=== PATIENT | male | born 1955 | race Caucasian/White ===

== ENCOUNTER → 2021-02-17 09:40 | Outpatient (CLI) | payer MEDICAID, SELFPAY ==
--- NOTE | 2021-02-17 | ASPOS_PTH ---
PATIENT: MANDEEP GRAY LOC: [facility] U#:[id number] AGE/SX: 69/M ROOM: RE02/17/[address]: Dr. Gal Rees MD : 1955 BED: DIS: SPEC #: [id number] RECD: 02/17/21 12:39 STATUS: LUIS A REValentine #: [id number] BIJAN: 02/17/21 00:[address]: Gal Rees DEPT: CYTOLOGY RECD BY: Chiki Collado ENTERED: 02/17/21 12:40 SP TYPE: ASP HERE OTHR DR: Dr. Ronda Floyd MD Tissues: Neck, NOS Procedures: Surgery Specimen Level IV Cytology Other Fine Needle Asp on Site HEADER OPERATION: Right posterior neck mass, fine needle aspiration PRE-OP DIAGNOSIS: Right posterior neck mass TISSUE SUBMITTED: Right posterior neck mass, FNA DIAGNOSIS CYTOLOGY Fine needle aspiration, right posterior neck mass (smears and cell block): Mature adipose tissue consistent with lipoma. AM:randy 02/20/2021 COMMENT The specimen is evaluated at the time of FNA by Dr. Gottlieb. Immediate Evaluation = Mature adipose tissue consistent with lipoma. CYTOLOGY STUDY Slides are reviewed. CYTOLOGY GROSS Received is 0.2 ml of yellow cloudy material labeled with the patient's name, and designated right posterior neck mass. Four imprints and one pap are made from the submitted fluid and the rest is added to [employer]to[employer] for cell block preparation. Submitted for cytology study. / AM:randy 02/17/2021 TC:5 CPT: 88652, 57617, 90857, 76210
== END ==
PROVIDERS: PCP Family Medicine; Referring Provider Otolaryngology Otolaryngology/Facial Plastic Surgery; Visit Provider Otolaryngology Otolaryngology/Facial Plastic Surgery
DX: R22.1 Localized swelling, mass and lump, neck (principal)
CPT/HCPCS: 10021; 88161; 88305

== ENCOUNTER → 2023-09-20 | Outpatient (CLI) | payer MEDICARE, MEDICAID, SELFPAY ==
[2023-09-20 12:22] LABS: Absolute Neutrophil Count 6.3 X10^3/uL (2.0-7.7); Basophil# 0.07 X10^3/uL; Basophil% 0.7 % (0-1); Hematocrit 45.4 % (40-54); Hemoglobin 14.9 g/dL (13.0-16.5); Lymphocyte % 21.5 % (19-41); Mean Corp Hgb Conc 32.8 g/dL (32-36); Mean Corpuscular Hgb 30.1 pg (27.0-32.0); Mean Corpuscular Volume 91.7 fL (80-94); Mean Platelet Vol. 9.9 fl (6.2-12.0); Monocyte# 1.04 X10^3/uL; Monocyte% 10.6 % (0-10); NRBC Flagged by Analyzer 0 % (0-5); Neutrophil # 6.33 X10^3/uL (2.7-7.7); Neutrophil % 64.8 % (47-70); Platelet Count 253 K/mm3 (150-450); RBC Distribution Width CV 12.9 % (11.6-14.6); RBC Distribution Width SD 43.4 fl (35.1-43.9); Red Blood Count 4.95 M/mm3 (4.6-6.2); White Blood Count 9.8 K/mm3 (4.4-11.0)
[2023-09-20 13:02] LABS: AST(SGOT) 15 U/L (15-37); Alanine Aminotransfer ALT/SGPT 25 U/L (16-61); Albumin, Serum 3.8 g/dL (3.2-5.0); Alkaline Phosphatase 87 U/L (45-117); Anion Gap 4 (5-15); BUN 16 mg/dL (7-18); BUN/Creat Ratio 13.7 RATIO (10-20); Calcium,Total 8.8 mg/dL (8.5-10.1); Chloride 108 mmol/L (98-107); Cholesterol 145 mg/dL (200); Creatinine, Serum 1.17 mg/dL (0.70-1.30); EST Glomerular Filtration Rate 66 mL/min (>60); Est Glom Filt Rate - Afr Amer 80 mL/min (>60); Glucose 115 mg/dL (74-106); High Density Lipoprotein 32 mg/dL; Potassium 3.8 mmol/L (3.5-5.1); Protein, Total 7.8 g/dL (6.4-8.2); Sodium Level 139 mmol/L (136-145); Triglycerides 115 mg/dL; Very Low Density Lipoprotein 23 mg/dL (5-40)
== END | disposition home or self-care (01) ==
LOC: BFHLAB 10:05
PROVIDERS: PCP Family Medicine; Visit Provider Family Medicine
DX: I10 Essential (primary) hypertension (principal); E78.5 Hyperlipidemia, unspecified
CPT/HCPCS: 36415; 80053; 80061; 85025